=== PATIENT | male | born 2000 | race Caucasian/White ===

== ENCOUNTER 2022-07-29 19:06 | Emergency (ER) | payer MEDICAID ==
[~2022-07-29] VITALS: Ht 165.1 cm; Wt 43.1 kg
--- NOTE | 2022-07-29 19:14 | ED General ---
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 Patient is nonverbal and has PMH of PICA. No known sick contacts in the facility. Patient appeared lethargic and tired and lying in the bed sleeping most of the day which was concerning to the business loan processor. Patient had a normal bowel movement today. Patient was given Tylenol around 6 PM at the facility. Allergies and Home Medications Allergies Coded Allergies: No Known Drug Allergies (Unverified , 10/18/11) Patient Home Medication List Home Medication List Reviewed: Yes Review of Systems Review of Systems Constitutional: fever EENTM: no symptoms reported Respiratory: no symptoms reported Cardiovascular: no symptoms reported Gastrointestinal: no symptoms reported Genitourinary: no symptoms reported Musculoskeletal: no symptoms reported Skin: no symptoms reported Psychiatric/Neurological: No Symptoms Reported Hematologic/Lymphatic: No Symptoms Reported Immunological/Allergic: no symptoms reported Physical Exam Vital Signs Vital Signs - First Documented 07/29/22 19:17 Temp 39.4 Pulse 93 Resp 16 B/P (MAP) 113/50 (71) Pulse Ox 98 O2 Delivery Room Air Capillary Refill : Height, Weight, BMI Height: '" Weight: lbs. oz. kg; BMI Method: General Appearance: No Apparent Distress, Thin, Other (Tired and lethargic) HEENT: PERRL/EOMI, TMs Normal, Other (Unable to look inside the mouth since patient is nonverbal and has limited comprehension, causing him to be uncooperative with exam) Neck: Full Range of Motion, Normal Inspection, Non Tender, Supple Respiratory: Chest Non Tender, Lungs Clear Cardiovascular: Regular Rate, Rhythm Gastrointestinal: Normal Bowel Sounds, Non Tender, Soft Neurologic/Psychiatric: Alert Skin: Normal Color Focused Exam Lactate Level 07/29/22 19:35: Lactic Acid Level 1.35 Lactic Acid Level Laboratory Tests Test 07/29/22 19:35 Lactic Acid Level 1.35 MMOL/L (0.50-2.00) Progress/Results/Core Measures Suspected Sepsis SIRS Temperature: Pulse: Respiratory Rate: Laboratory Tests 07/29/22 19:35: White Blood Count 6.0 Blood Pressure / Mean: 07/29/22 19:35: Lactic Acid Level 1.35 Laboratory Tests 07/29/22 19:35: Creatinine 0.79, Platelet Count 114L, Total Bilirubin 0.3 Results/Orders Lab Results Laboratory Tests Test 07/29/22 19:35 07/29/22 19:40 07/29/22 19:42 07/29/22 21:45 Range/Units White Blood Count 6.0 4.3-11.0 10^3/uL Red Blood Count 3.58 L 4.30-5.52 10^6/uL Hemoglobin 10.7 L 13.3-17.7 g/dL Hematocrit 32 L 40-54 % Mean Corpuscular Volume 91 80-99 fL Mean Corpuscular Hemoglobin 30 25-34 pg Mean Corpuscular Hemoglobin Concent 33 32-36 g/dL Red Cell Distribution Width 13.5 10.0-14.5 % Platelet Count 114 L 130-400 10^3/uL Mean Platelet Volume 10.3 9.0-12.2 fL Immature Granulocyte % (Auto) 0 % Neutrophils (%) (Auto) 81 H 42-75 % Lymphocytes (%) (Auto) 12 12-44 % Monocytes (%) (Auto) 6 0-12 % Eosinophils (%) (Auto) 0 0-10 % Basophils (%) (Auto) 1 0-10 % Neutrophils # (Auto) 4.8 1.8-7.8 10^3/uL Lymphocytes # (Auto) 0.7 L 1.0-4.0 10^3/uL Monocytes # (Auto) 0.4 0.0-1.0 10^3/uL Eosinophils # (Auto) 0.0 0.0-0.3 10^3/uL Basophils # (Auto) 0.0 0.0-0.1 10^3/uL Immature Granulocyte # (Auto) 0.0 0.0-0.1 10^3/uL Percent Immature Platelet Fraction 4.2 0.0-7.6 % Sodium Level 141 135-145 MMOL/L Potassium Level 3.5 L 3.6-5.0 MMOL/L Chloride Level 104 98-107 MMOL/L Carbon Dioxide Level 26 21-32 MMOL/L Anion Gap 11 5-14 MMOL/L Blood Urea Nitrogen 13 7-18 MG/DL Creatinine 0.79 0.60-1.30 MG/DL Estimat Glomerular Filtration Rate 130 BUN/Creatinine Ratio 16 Glucose Level 87 70-105 MG/DL Lactic Acid Level 1.35 0.50-2.00 MMOL/L Calcium Level 8.7 8.5-10.1 MG/DL Corrected Calcium 8.8 8.5-10.1 MG/DL Magnesium Level 1.6 1.6-2.4 MG/DL Total Bilirubin 0.3 0.1-1.0 MG/DL Aspartate Amino Transf (AST/SGOT) 13 5-34 U/L Alanine Aminotransferase (ALT/SGPT) 6 0-55 U/L Alkaline Phosphatase 45 40-136 U/L Total Protein 6.3 L 6.4-8.2 GM/DL Albumin 3.9 3.2-4.5 GM/DL Influenza Type A (RT-PCR) Not Detected Not Detecte Influenza Type B (RT-PCR) Not Detected Not Detecte SARS-CoV-2 RNA (RT-PCR) Not Detected Not Detecte Group A Streptococcus Screen NEGATIVE NEGATIVE Urine Color YELLOW Urine Clarity CLEAR Urine pH 7.0 5-9 Urine Specific [place] <=1.005 1.016-1.022 Urine Protein NEGATIVE NEGATIVE Urine Glucose (UA) NEGATIVE NEGATIVE Urine Ketones NEGATIVE NEGATIVE Urine Nitrite NEGATIVE NEGATIVE Urine Bilirubin NEGATIVE NEGATIVE Urine Urobilinogen 0.2 < = 1.0 MG/DL Urine Leukocyte Esterase NEGATIVE NEGATIVE Urine RBC (Auto) NEGATIVE NEGATIVE Urine RBC NONE /HPF Urine WBC NONE /HPF Urine Squamous Epithelial Cells 0-2 /HPF Urine Crystals NONE /LPF Urine Bacteria NEGATIVE /HPF Urine Casts NONE /LPF Urine Mucus NEGATIVE /LPF Urine Culture Indicated NO My Orders Orders - CAMI ARRIAZA MD Covid 19 Inhouse Test (07/29/22 19:10) Influenza A And B By Pcr (07/29/22 19:10) Ua Culture If Indicated (07/29/22 19:10) Rapid Strep A Screen (07/29/22 19:15) Cbc With Automated Diff (07/29/22 19:24) Comprehensive Metabolic Panel (07/29/22 19:24) Magnesium (07/29/22 19:24) Chest 1 View Ap/Pa Only (07/29/22 19:25) Ed Iv/Invasive Line Start (07/29/22 19:26) Ns Iv 1000 Ml (Sodium Chloride 0.9%) (07/29/22 19:30) Ketorolac Injection (Toradol Injection) (07/29/22 19:27) Blood Culture (07/29/22 19:55) Lactic Acid Analyzer (07/29/22 19:55) Straight Cath (Urinary) (07/29/22 21:24) Vital Signs/I&O 07/29/22 07/29/22 07/29/22 19:17 19:38 21:57 Temp 39.4 38.4 37.0 Pulse 93 Resp 16 B/P (MAP) 113/50 (71) Pulse Ox 98 O2 Delivery Room Air Capillary Refill : Progress Note : Progress Note 1. FEVER, UNSPECIFIED: - CXR: normal - COVID test/ Rapid Strep Test/ Rapid Flu: negative - CBC/ CMP: unremarkable - UA normal - Blood cultures sent - Lactic acid: normal - NS IVF bolus and Toradol iv STAT - Temperature normal prior to discharge - Work up is negative and can not identify source of fever -Follow-up with PCP within the next 3 days -The patient was seen in the ED, and treated appropriately to presentation at a specific point in time. Patient is informed that there is a possibility that disease and illness can evolve and change in acuity rapidly or slowly after patient is discharged from the ER. Precautionary advice given to the patient for immediate return to ER if symptoms worsen or do not resolve, and to seek emergency care sooner rather than later. Pt also advised on the importance of PCP follow up and compliance with management and follow up plan with PCP and/or specialist, as this is part of the management plan. Pt verbally expressed understanding. Diagnostic Imaging Diagonstic Imaging: Xray Plain Films/CT/US/NM/MRI: chest Departure Impression Primary Impression: Fever, unspecified Disposition: 62 DISC/XFER TO IRF Condition: Stable Departure-Patient Inst. Referrals: DORI HAMMOND DO (PCP/Family) Primary Care Physician Patient Instructions: Fever, Adult ED CAMI ARRIAZA MD Jul 29, 2022 19:14
[2022-07-29] MEDS ORDERED: KETOROLAC 30 MG/ML VIAL IVP STA (19:27)
[2022-07-29] MEDS ORDERED: NS IV 1000 ML 1,000 ML IV SCH (19:30)
[2022-07-29 19:38] LABS: BASOPHILS % (AUTO) 1 % (0-10); EOSINOPHILS % (AUTO) 0 % (0-10); HEMATOCRIT 32 % (40-54); HEMOGLOBIN 10.7 g/dL (13.3-17.7); LYMPHOCYTES # (AUTO) 0.7 10^3/uL (1.0-4.0); LYMPHOCYTES % (AUTO) 12 % (12-44); MEAN CORPUSCULAR HEMOGLOBIN 30 pg (25-34); MEAN CORPUSCULAR HGB CONC 33 g/dL (32-36); MEAN CORPUSCULAR VOLUME 91 fL (80-99); MEAN PLATELET VOLUME 10.3 fL (9.0-12.2); MONOCYTES # (AUTO) 0.4 10^3/uL (0.0-1.0); MONOCYTES % (AUTO) 6 % (0-12); NEUTROPHILS # (AUTO) 4.8 10^3/uL (1.8-7.8); NEUTROPHILS % (AUTO) 81 % (42-75); PLATELET COUNT 114 10^3/uL (130-400)
[2022-07-29 19:59] LABS: ALBUMIN 3.9 GM/DL (3.2-4.5); BILIRUBIN,TOTAL 0.3 MG/DL (0.1-1.0); CALCIUM 8.7 MG/DL (8.5-10.1); CREATININE SERUM 0.79 MG/DL (0.60-1.30); MAGNESIUM 1.6 MG/DL (1.6-2.4); POTASSIUM 3.5 MMOL/L (3.6-5.0); TOTAL PROTEIN 6.3 GM/DL (6.4-8.2)
--- NOTE | 2022-07-29 20:06 | Diagnostic Imaging Report ---
INDICATION: Fever. COMPARISON: None. FINDINGS: Single frontal view of the chest demonstrates normal heart size and pulmonary vascularity. The lungs are well aerated and clear. No large pleural effusion or pneumothorax is seen. The visualized osseous structures show no acute abnormality. IMPRESSION: No acute cardiopulmonary process. Dictated by: Dictated on workstation # [id number]
[2022-07-29 21:46] LABS: BILIRUBIN,URINE NEGATIVE (NEGATIVE); CLARITY,URINE CLEAR; COLOR,URINE YELLOW; GLUCOSE, URINE (UA) NEGATIVE (NEGATIVE); KETONES,URINE NEGATIVE (NEGATIVE); LEUKOCYTE ESTERASE ,URINE NEGATIVE (NEGATIVE); NITRITE,URINE NEGATIVE (NEGATIVE); PROTEIN,URINE NEGATIVE (NEGATIVE)
[2022-07-29 21:57] LABS: BACTERIA,URINE NEGATIVE /HPF; SQUAMOUS EPITHELIAL CELL,UR 0-2 /HPF
[2022-07-29 22:39] VITALS: BP 131/64
== END 2022-07-29 22:39 | disposition home or self-care (01) ==
LOC: EDUNIT# 19:06 → ER FS 19:12
DX: R50.9 Fever, unspecified (principal); Z20.822 Contact with and (suspected) exposure to COVID-19; Z28.311 Partially vaccinated for COVID-19
CPT/HCPCS: 36415; 51701; 71045; 80053; 81000; 83605; 83735; 85025; 87040; 87430; 87636

== ENCOUNTER → 2022-08-09 | Outpatient (CLI) | payer MEDICAID ==
--- NOTE | 2022-08-09 19:42 | Diagnostic Imaging Report ---
INDICATION: Diarrhea. FINDINGS: Upright abdomen. 2 views. There are air-fluid levels within the stomach and the small bowel as well as a few air-fluid levels in the colon. There is very little solid stool in the colon. There is no organomegaly. No pathologic calcification. There is rather severe S-type scoliosis of the thoracolumbar spine. IMPRESSION: 1. Air-fluid levels scattered throughout without evidence of obstruction. Very little solid stool present. These findings would be consistent with enteritis with patient's symptoms. Dictated by: Dictated on workstation # [id number]
== END ==
LOC: RAD FS 11:43
PROVIDERS: ATTEND Family Medicine
DX: R19.7 Diarrhea, unspecified (principal)
CPT/HCPCS: 74019

== ENCOUNTER 2022-09-07 11:18 | Emergency (ER) | payer MEDICAID ==
[~2022-09-07] VITALS: Ht 165.1 cm; Wt 46.9 kg
--- NOTE | 2022-09-07 11:27 | ED General ---
General Chief Complaint: Fever-Adult/Adol Stated Complaint: FEVER History of Present Illness Date Seen by Provider: Sep 07, 2022 Time Seen by Provider: 11:23 Initial Comments 22-year-old male with PMH of intellectual disability who is nonverbal/probable autism/ congenital heart disease, is here from [facility], with complaints of fever and lethargy which was noticed today by staff. Patient's roommate is positive for influenza A and COVID. Denies abdominal pain, diarrhea, shortness of breath, cough. Patient ate breakfast today. Allergies and Home Medications Allergies Coded Allergies: No Known Drug Allergies (Unverified , 10/18/11) Patient Home Medication List Home Medication List Reviewed: Yes Review of Systems Review of Systems Constitutional: fever, malaise EENTM: no symptoms reported Respiratory: no symptoms reported Cardiovascular: no symptoms reported Gastrointestinal: no symptoms reported Genitourinary: no symptoms reported Musculoskeletal: no symptoms reported Skin: no symptoms reported Psychiatric/Neurological: No Symptoms Reported Hematologic/Lymphatic: No Symptoms Reported Immunological/Allergic: no symptoms reported Past Sqjgaid-Qtjpbd-Ilothd Hx Immunizations Up To Date First/Initial COVID19 Vaccinat: 05/03/2021 Second COVID19 Vaccination [place]: UNK Third COVID19 Vaccination Date: UNK Physical Exam Vital Signs Vital Signs - First Documented 09/07/22 11:22 Temp 39.1 Pulse 106 Resp 20 B/P (MAP) 101/54 (70) O2 Delivery Room Air Capillary Refill : Height, Weight, BMI Height: '" Weight: lbs. oz. kg; 15.00 BMI Method: General Appearance: No Apparent Distress, WD/WN HEENT: PERRL/EOMI, Normal ENT Inspection Neck: Full Range of Motion, Normal Inspection, Non Tender, Supple Respiratory: Chest Non Tender, Lungs Clear, Normal Breath Sounds, No Accessory Muscle Use, No Respiratory Distress Cardiovascular: Regular Rate, Rhythm Gastrointestinal: Non Tender, Soft Extremity: Normal Range of Motion Neurologic/Psychiatric: Alert Skin: Normal Color Progress/Results/Core Measures Suspected Sepsis SIRS Temperature: Pulse: Respiratory Rate: Blood Pressure / Mean: Results/Orders Lab Results Laboratory Tests Test 09/07/22 11:30 Range/Units Influenza Type A (RT-PCR) Detected H Not Detecte Influenza Type B (RT-PCR) Not Detected Not Detecte SARS-CoV-2 RNA (RT-PCR) Detected H Not Detecte My Orders Orders - CAMI ARRIAZA MD Covid 19 Inhouse Test (09/07/22 11:20) Influenza A And B By Pcr (09/07/22 11:20) Ibuprofen Tablet (Motrin Tablet) (09/07/22 12:15) Vital Signs/I&O 09/07/22 11:22 Temp 39.1 Pulse 106 Resp 20 B/P (MAP) 101/54 (70) O2 Delivery Room Air Capillary Refill : Progress Note : Progress Note 1. COVID POSITIVE & INFLUENZA A POSITIVE: - COVID test: Positive - Rapid flu test: Positive - Paxlovid bid for 5days since pt has congenital heart disease. Dispensed from ER - Advised adequate hydration, Tylenol or Ibuprofen prn fever or body aches - Follow up with PCP in 3 to 7 days Departure Impression Primary Impression: SARS-CoV-2 positive Additional Impression: Influenza A Disposition: 01 HOME, SELF-CARE Condition: Stable Departure-Patient Inst. Referrals: CAMILLA SOUSA APRN (PCP) Primary Care Physician [facility]/ANA (Family) Primary Care Physician Patient Instructions: Flu, Adult ED, COVID-19 Overview, COVID-19 ED, Prone Position Add. Discharge Instructions: - Paxlovid bid for 5days. Dispensed from ER - Advised adequate hydration, Tylenol or Ibuprofen prn fever or body aches - Follow up with PCP in 3 to 7 days All discharge instructions reviewed with patient and/or family. Voiced understanding. CAMI ARRIAZA MD Sep 07, 2022 11:27
[2022-09-07] MEDS ORDERED: IBUPROFEN TABLET 200 MG TAB PO ONE (12:15)
[2022-09-07] MEDS ORDERED: RX-NIRMATRELVIR/RITONAVIR (PAXLOVID) #30 TABS PO STA (12:21)
[2022-09-07 12:37] VITALS: BP 101/54
== END 2022-09-07 12:38 | disposition home or self-care (01) ==
LOC: EDUNIT# 11:18 → ER FS 11:20
DX: U07.1 COVID-19 (principal); J10.1 Influenza due to other identified influenza virus with other respiratory manifestations
CPT/HCPCS: 87636; 99283

== ENCOUNTER 2022-09-09 14:59 | Emergency (ER) | payer MEDICAID ==
[~2022-09-09] VITALS: Ht 162.5 cm; Wt 45.4 kg
[2022-09-09] MEDS ORDERED: ACETAMINOPHEN 325 MG TABLET PO STA (15:12)
[2022-09-09] MEDS ORDERED: NS IV 1000 ML 1,000 ML IV STA (15:14)
[2022-09-09 15:20] LABS: BASOPHILS % (AUTO) 0 % (0-10); EOSINOPHILS % (AUTO) 0 % (0-10); HEMATOCRIT 32 % (40-54); HEMOGLOBIN 10.4 g/dL (13.3-17.7); LYMPHOCYTES % (AUTO) 19 % (12-44); MEAN CORPUSCULAR HEMOGLOBIN 28 pg (25-34); MEAN CORPUSCULAR HGB CONC 33 g/dL (32-36); MEAN CORPUSCULAR VOLUME 86 fL (80-99); MEAN PLATELET VOLUME 11.5 fL (9.0-12.2); MONOCYTES # (AUTO) 0.5 10^3/uL (0.0-1.0); MONOCYTES % (AUTO) 9 % (0-12); NEUTROPHILS # (AUTO) 3.8 10^3/uL (1.8-7.8); NEUTROPHILS % (AUTO) 71 % (42-75); PLATELET COUNT 109 10^3/uL (130-400); WHITE BLOOD COUNT 5.4 10^3/uL (4.3-11.0)
--- NOTE | 2022-09-09 15:24 | ED Cough/URI ---
General Chief Complaint: Fever-Adult/Adol Stated Complaint: FEVER; COVID+ Source: old records, caregiver Exam Limitations: clinical condition (autistic and developmental delay) History of Present Illness Date Seen by Provider: Sep 09, 2022 Time Seen by Provider: 15:04 Initial Comments 22-year-old male with developmental delay and autism presents with fever from home. EMS transported him from home due to reported fever of 105 Fahrenheit. On arrival here his temperature was not elevated and certainly not 105 Fahrenheit. He did appear as though he did not feel well. He had good oxygen ation saturation and had vital signs otherwise. He was not tachycardic. He was diagnosed with COVID on September 07 and has been on Paxlovid since then. He has not had any Tylenol or medicine for fever since around 330 this morning. He is eating less but did have lunch and was drinking some fluids. Timing/Duration: just prior to arrival Severity/Quality: moderate, dry cough Modifying Factors: Worse With Activity Associated Symptoms: cough, fever/chills, nasal congestion, nasal drainage Allergies and Home Medications Allergies Coded Allergies: No Known Drug Allergies (Unverified , 10/18/11) Patient Home Medication List Home Medication List Reviewed: Yes Review of Systems Review of Systems Constitutional: see HPI EENTM: see HPI Respiratory: see HPI Cardiovascular: no symptoms reported Gastrointestinal: no symptoms reported Genitourinary: no symptoms reported Musculoskeletal: no symptoms reported Skin: No rash Psychiatric/Neurological: No Symptoms Reported Past Umdzowe-Qvvvjq-Mzuxgo Hx Patient Social History Tobacco Use?: No Use of E-Cig and/or Vaping dev: No Substance use?: No Alcohol Use?: No Immunizations Up To Date First/Initial COVID19 Vaccinat: 05/03/2021 Second COVID19 Vaccination [place]: UNK Third COVID19 Vaccination Date: UNK Past Medical History Surgery/Hospitalization HX: Autism, developmental delay Physical Exam Vital Signs - First Documented 09/09/22 15:02 Temp 38.1 Pulse 100 Resp 18 B/P (MAP) 94/50 (65) Pulse Ox 99 O2 Delivery Room Air Capillary Refill : Height: '" Weight: lbs. oz. kg; 17.00 BMI Method: General Appearance: no apparent distress, thin HEENT: other (Slightly dry mucous membranes, dried crusty drainage to his nares) Respiratory: chest non-tender, lungs clear, normal breath sounds, no respiratory distress, no accessory muscle use Cardiovascular: normal peripheral pulses, regular rate, rhythm Gastrointestinal: normal bowel sounds, non tender, soft Extremities: no pedal edema, normal capillary refill Neurologic/Psychiatric: alert Skin: normal color, warm/dry Focused Exam Lactate Level 09/09/22 15:13: Lactic Acid Level 0.99 Lactic Acid Level Laboratory Tests Test 09/09/22 15:13 Lactic Acid Level 0.99 MMOL/L (0.50-2.00) Progress/Results/Core Measures Suspected Sepsis SIRS Temperature: Pulse: Respiratory Rate: Laboratory Tests 09/09/22 15:13: White Blood Count 5.4 Blood Pressure / Mean: 09/09/22 15:13: Lactic Acid Level 0.99 Laboratory Tests 09/09/22 15:13: Creatinine 0.73, Platelet Count 109L, Total Bilirubin 0.4 Results/Orders Lab Results Laboratory Tests Test 09/09/22 15:13 Range/Units White Blood Count 5.4 4.3-11.0 10^3/uL Red Blood Count 3.72 L 4.30-5.52 10^6/uL Hemoglobin 10.4 L 13.3-17.7 g/dL Hematocrit 32 L 40-54 % Mean Corpuscular Volume 86 80-99 fL Mean Corpuscular Hemoglobin 28 25-34 pg Mean Corpuscular Hemoglobin Concent 33 32-36 g/dL Red Cell Distribution Width 14.3 10.0-14.5 % Platelet Count 109 L 130-400 10^3/uL Mean Platelet Volume 11.5 9.0-12.2 fL Immature Granulocyte % (Auto) 0 % Neutrophils (%) (Auto) 71 42-75 % Lymphocytes (%) (Auto) 19 12-44 % Monocytes (%) (Auto) 9 0-12 % Eosinophils (%) (Auto) 0 0-10 % Basophils (%) (Auto) 0 0-10 % Neutrophils # (Auto) 3.8 1.8-7.8 10^3/uL Lymphocytes # (Auto) 1.0 1.0-4.0 10^3/uL Monocytes # (Auto) 0.5 0.0-1.0 10^3/uL Eosinophils # (Auto) 0.0 0.0-0.3 10^3/uL Basophils # (Auto) 0.0 0.0-0.1 10^3/uL Immature Granulocyte # (Auto) 0.0 0.0-0.1 10^3/uL Percent Immature Platelet Fraction 8.4 H 0.0-7.6 % Sodium Level 136 135-145 MMOL/L Potassium Level 3.4 L 3.6-5.0 MMOL/L Chloride Level 101 98-107 MMOL/L Carbon Dioxide Level 24 21-32 MMOL/L Anion Gap 11 5-14 MMOL/L Blood Urea Nitrogen 14 7-18 MG/DL Creatinine 0.73 0.60-1.30 MG/DL Estimat Glomerular Filtration Rate 133 BUN/Creatinine Ratio 19 Glucose Level 94 70-105 MG/DL Lactic Acid Level 0.99 0.50-2.00 MMOL/L Calcium Level 8.5 8.5-10.1 MG/DL Corrected Calcium 8.7 8.5-10.1 MG/DL Total Bilirubin 0.4 0.1-1.0 MG/DL Aspartate Amino Transf (AST/SGOT) 16 5-34 U/L Alanine Aminotransferase (ALT/SGPT) 10 0-55 U/L Alkaline Phosphatase 60 40-136 U/L C-Reactive Protein 10.21 H <0.50 MG/DL Total Protein 6.8 6.4-8.2 GM/DL Albumin 3.7 3.2-4.5 GM/DL My Orders Orders - NORMA TEMPLETON MD Acetaminophen Tablet/Caplet (Tylenol T (09/09/22 15:12) Cbc With Automated Diff (09/09/22 15:12) Comprehensive Metabolic Panel (09/09/22 15:12) Blood Culture (09/09/22 15:12) Chest 1 View Ap/Pa Only (09/09/22 15:12) Ed Iv/Invasive Line Start (09/09/22 15:12) Crp Fs (09/09/22 15:12) Lactic Acid Analyzer (09/09/22 15:12) Ns Iv 1000 Ml (Sodium Chloride 0.9%) (09/09/22 15:14) Vital Signs/I&O 09/09/22 09/09/22 15:02 16:01 Temp 38.1 38.1 Pulse 100 87 Resp 18 18 B/P (MAP) 94/50 (65) 100/49 Pulse Ox 99 96 O2 Delivery Room Air Room Air Capillary Refill : Progress Note #1: Progress Note With reported 105 Fahrenheit fever will obtain blood cultures and lactic acid as well as basic labs with a chest x-ray. Give normal saline 1 L IV fluid bolus, Tylenol 650 mg p.o. Progress Note #2: Progress Note CBC does not show an elevated white blood cell count. He has mild anemia with a hemoglobin of 10.4. His chemistry panel does not show acute significant abnormality with his electrolytes. His lactic acid is less than 1. He does have an elevated CRP to go along with inflammation and infection. His chest x- ray does not show an acute process and no infiltrate or effusion. His oxygen saturation is remained in the mid upper 90s on room air and heart rate in the 80s to 90s sinus rhythm. Blood pressures been good. Patient tends to remain on his left side in a position of comfort. Reviewed findings with the caregiver. Encouraged treating fever if it became present. Try to push fluids. Continue with the Paxlovid. Diagnostic Imaging Diagonstic Imaging: Xray Plain Films/CT/US/NM/MRI: chest Comments [facility], [place] NAME: ARIA MARTINEZ [facility] REC#: [id number] PT STATUS: REG ER : 2000 PHYSICIAN: NORMA TEMPLETON MD ADMIT DATE: 09/09/22/ER FS Draft Date of Exam:09/09/22 CHEST 1 VIEW AP/PA ONLY EXAMINATION: Chest, 1 view. HISTORY: Cough. Fever. Covid positive. COMPARISON: 07/29/2022. FINDINGS: The lung volumes are normal. No focal consolidation is seen. No large pleural effusion or pneumothorax is seen. The cardiomediastinal silhouette is normal in size and contour. No acute osseous abnormality is seen. There is severe right convexity scoliosis of the thoracic spine. IMPRESSION: No acute pleuroparenchymal process. Dictated on workstation # [id number] Dict: 09/09/22 1533 Trans: 09/09/22 1535 [facility] [id number] Interpreted by: TOREY HARVEY DO Electronically signed by: Reviewed: Reviewed by Me Departure Impression Primary Impression: COVID-19 virus infection Additional Impression: Upper respiratory tract infection due to COVID-19 virus Disposition: HOME, SELF-CARE Condition: Stable Departure-Patient Inst. Decision time for Depature: 15:49 Referrals: CAMILLA SOUSA APRN (PCP) Primary Care Physician [facility] (Family) Primary Care Physician Patient Instructions: COVID-19 ED, Fever, Adult ED Add. Discharge Instructions: Encourage hydration and fluids. Continue on the Paxlovid for his Covid infection. Acetaminophen 650 mg every 6 hours as needed for fever over 101 F All discharge instructions reviewed with patient and/or family. Voiced understanding. NORMA TEMPLETON MD Sep 09, 2022 15:24
--- NOTE | 2022-09-09 15:35 | Diagnostic Imaging Report ---
EXAMINATION: Chest, 1 view. HISTORY: Cough. Fever. Covid positive. COMPARISON: 07/29/2022. FINDINGS: The lung volumes are normal. No focal consolidation is seen. No large pleural effusion or pneumothorax is seen. The cardiomediastinal silhouette is normal in size and contour. No acute osseous abnormality is seen. There is severe right convexity scoliosis of the thoracic spine. IMPRESSION: No acute pleuroparenchymal process. Dictated by: Dictated on workstation # [id number]
[2022-09-09 15:41] LABS: BILIRUBIN,TOTAL 0.4 MG/DL (0.1-1.0); CALCIUM 8.5 MG/DL (8.5-10.1); CREATININE SERUM 0.73 MG/DL (0.60-1.30); POTASSIUM 3.4 MMOL/L (3.6-5.0)
[2022-09-09 15:42] LABS: ALBUMIN 3.7 GM/DL (3.2-4.5); TOTAL PROTEIN 6.8 GM/DL (6.4-8.2)
[2022-09-09 16:01] VITALS: BP 100/49
== END 2022-09-09 16:02 | disposition home or self-care (01) ==
LOC: EDUNIT# 14:59 → ER FS 15:02
DX: U07.1 COVID-19 (principal); J06.9 Acute upper respiratory infection, unspecified; D64.9 Anemia, unspecified
CPT/HCPCS: 36415; 71045; 80053; 83605; 85025; 86141; 87040

== ENCOUNTER 2023-08-15 10:20 | Emergency (ER) | payer MEDICAID ==
[~2023-08-15] VITALS: Ht 162 cm; Wt 63.5 kg
[2023-08-15] MEDS ORDERED: KETOROLAC INJ 30 MG/ML VIAL IM STA (10:28)
[2023-08-15] MEDS ORDERED: KETOROLAC INJ 30 MG/ML VIAL ONE (10:29)
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
[2023-08-15 11:26] LABS: BASOPHILS # (AUTO) 0.1 10^3/uL (0.0-0.1); BASOPHILS % (AUTO) 1 % (0-10); EOSINOPHILS # (AUTO) 0.2 10^3/uL (0.0-0.3); EOSINOPHILS % (AUTO) 4 % (0-10); HEMATOCRIT 43 % (40-54); HEMOGLOBIN 14.1 g/dL (13.3-17.7); LYMPHOCYTES # (AUTO) 1.1 10^3/uL (1.0-4.0); LYMPHOCYTES % (AUTO) 22 % (12-44); MEAN CORPUSCULAR HEMOGLOBIN 29 pg (25-34); MEAN CORPUSCULAR HGB CONC 33 g/dL (32-36); MEAN CORPUSCULAR VOLUME 90 fL (80-99); MEAN PLATELET VOLUME 11.8 fL (9.0-12.2); MONOCYTES # (AUTO) 0.3 10^3/uL (0.0-1.0); MONOCYTES % (AUTO) 7 % (0-12); NEUTROPHILS # (AUTO) 3.4 10^3/uL (1.8-7.8); NEUTROPHILS % (AUTO) 67 % (42-75); PLATELET COUNT 48 10^3/uL (130-400); WHITE BLOOD COUNT 5.1 10^3/uL (4.3-11.0)
--- NOTE | 2023-08-15 11:26 | Diagnostic Imaging Report ---
PELVIS (AP) INDICATION: Trauma COMPARISON: Left femur radiographs performed concurrently TECHNIQUE: AP view of the pelvis FINDINGS: There is an oblique fracture in the subtrochanteric region of the proximal left femur. The femoral shaft is medially displaced and proximally migrated. No hip dislocation. IMPRESSION: Displaced fracture of the subtrochanteric region. Dictated by: Dictated on workstation # [id number]
[2023-08-15 11:41] VITALS: BP 140/60
[2023-08-15] MEDS ORDERED: fentaNYL INJECTION 100 MCG/2 ML VIAL IVP STA (11:42)
[2023-08-15 11:47] LABS: CREATININE SERUM 0.76 MG/DL (0.60-1.30); POTASSIUM 3.6 MMOL/L (3.6-5.0)
[2023-08-15 11:48] LABS: ALBUMIN 4.2 GM/DL (3.2-4.5); BILIRUBIN,TOTAL 0.5 MG/DL (0.1-1.0); CALCIUM 9.2 MG/DL (8.5-10.1)
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
== END 2023-08-15 11:45 | disposition short-term general hospital (02) ==
LOC: EDUNIT# 10:20 → ER FS 10:21
DX: S72.022A Displaced fracture of epiphysis (separation) (upper) of left femur, initial encounter for closed fracture (principal); Y04.8XXA Assault by other bodily force, initial encounter
CPT/HCPCS: 36415; 71045; 72170; 73552; 80053; 85025; 96372